=== PATIENT | male | born 1970 | race African-American/Black ===

== ENCOUNTER 2019-01-05 16:32 | Emergency (ER) | payer BC ==
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
[2019-01-05] MEDS ORDERED: HYDROCODONE/ACETAMINOPHEN 5-325 MG TABLET PO ONE (17:59)
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
[2019-01-05 18:44] VITALS: BP 128/82
== END 2019-01-05 18:45 | disposition home or self-care (01) ==
LOC: ER 16:32
DX: S22.42XA Multiple fractures of ribs, left side, initial encounter for closed fracture (principal); Y04.0XXA Assault by unarmed brawl or fight, initial encounter; Y92.009 Unspecified place in unspecified non-institutional (private) residence as the place of occurrence of the external cause; F17.200 Nicotine dependence, unspecified, uncomplicated
CPT/HCPCS: 99283